=== PATIENT | female | born 1940 | race Caucasian/White ===

== ENCOUNTER 2018-07-06 13:12 | Outpatient (CLI) | payer MEDICARE, MEDICAID ==
[2018-07-06 13:10] VITALS: BP 129/61
[2018-07-06] MEDS ORDERED: COZAAR25 MG ORAL (20:37)
[2018-07-06] MEDS ORDERED: ALENDRONATE SOD10 MG ORAL (20:37)
[2018-07-06] MEDS ORDERED: VYTORIN 10-101 EACH ORAL (20:37)
[2018-07-06] MEDS ORDERED: NEURONTIN100 MG ORAL (20:37)
--- NOTE | 2018-07-06 20:41 | GI Initial Consult Note ---
History of Present Illness General Date patient seen: Jul 06, 2018 Time patient seen: 15:00 Referring physician: NONE Reason for Consultation: ROUTINE COLONOSCOPY Present Illness HPI 78 year old female patient presents today for routine colonoscopy. History of colonoscopy, small bowel capsule endoscopy back in 2011 without any source of anemia. Today, she states she has been having diarrhea and rectal pain with bleeding. In addition, the patient c/o of increased urgency to urinate. Home Meds Reported Medications Gabapentin* (NEURONTIN*) Unknown Strength Capsule, ORAL THREE TIMES A DAY, #15 CAP 0 Refills 07/06/18 Ezetimibe/Simvastatin 10-10MG (VYTORIN 10-10 MG TABLET) Unknown Strength Tablet , ORAL DAILY, TAB 07/06/18 Alendronate Sodium* (FOSAMAX*) 10 Mg Tablet, 10 MG ORAL DAILY, TAB 0 Refills Take with 6-8 oz water at least 30 minutes before first food; Sit upright for at least 30min after medication administration 07/06/18 Losartan Potassium* (COZAAR*) Unknown Strength Tablet, ORAL DAILY, TAB 07/06/18 Med list reviewed/reconciled: Yes Allergies: Coded Allergies: PENICILLINS (Verified Allergy, Unknown, 01/25/09) Patient History History Provided By: Patient, Medical Record PMH Narrative DM HTN Osteoporosis Anemia Past Surgical History: Hysterectomy Social History: Denies: smoking, alcohol use, drug use, other Review of Systems All Other Systems: negative except mentioned in HPI Physical Exam Vital Signs Date Time Temp Pulse Resp B/P (MAP) Pulse Ox O2 Delivery O2 Flow Rate FiO2 07/06/18 13:10 98.3 83 129/61 95 98.3 Sp02 EP Interpretation: reviewed, normal General Appearance: well appearing, no apparent distress, alert Head: normocephalic EENT: PERRL/EOMI, normal ENT inspection Neck: supple Respiratory: normal breath sounds, no respiratory distress Cardiovascular: normal rate Gastrointestinal: normal inspection, non tender, soft, normal bowel sounds, non -distended Rectal: deferred Genitourinary: no CVA tenderness Musculoskeletal: normal inspection, back normal Neurologic: normal inspection, alert, oriented x3, responsive Psychiatric: normal inspection, judgement/insight normal, memory normal Skin: normal inspection, normal color, no rash, warm/dry, palpation normal, well hydrated Lymphatic: normal inspection, no adenopathy GI: Plan Problems: (1) Colonoscopy planned (2) Rectal pain (3) Rectal bleed (4) Diarrhea (5) HTN (hypertension) (6) Diabetes mellitus (7) Anemia Plan Colonoscopy scheduled. - CLD & (Nulytely/Suprep/Movi-Prep) prep instructions given and acknowledged by patient. - NPO @ ID day prior procedure explained. Seen with Dr. Monteiro. Thank you for this patient referral. The patient was seen and examined at bedside and all new and available data was reviewed in the patients chart. I agree with the above findings, impression and plan. (Patient seen earlier today. Signature stamp does not reflect patient encounter time.). - MD Diane Palacios AnhNicholas MEDICAL IMAGING TECHNOLOGIST Jul 06, 2018 20:41
== END 2018-07-06 13:42 | disposition home or self-care (01) ==
LOC: PAN 13:12
DX: Z12.11 Encounter for screening for malignant neoplasm of colon (principal); K62.89 Other specified diseases of anus and rectum; K62.5 Hemorrhage of anus and rectum; R19.7 Diarrhea, unspecified; I10 Essential (primary) hypertension; E11.9 Type 2 diabetes mellitus without complications; D64.9 Anemia, unspecified; M81.0 Age-related osteoporosis without current pathological fracture; Z88.0 Allergy status to penicillin
CPT/HCPCS: 99201

== ENCOUNTER 2018-07-13 07:54 | Day surgery (SDC) | payer MEDICARE, OTHER ==
[2018-07-13] VITALS (9 sets, daily range): BP systolic 110–150; BP diastolic 56–70
[~2018-07-13] VITALS: Ht 134.6 cm; Wt 62.6 kg
--- NOTE | 2018-07-13 06:49 | Anethesia Preoperative Eval ---
Anesthesia Pre-op PMH/ROS General Date of Evaluation: Jul 13, 2018 Time of Evaluation: 06:46 Anesthesiologist: soraya ASA Score: ASA 4 Mallampati Score Class I : Soft palate, uvula, fauces, pillars visible Class II: Soft palate, uvula, fauces visible Class III: Soft palate, base of uvula visible Class IV: Only hard plate visible Mallampati Classification: Class II Surgeon: nestor Diagnosis: rectal bleed Surgical Procedure: colonoscopy Anesthesia History: none Social History: smoking - nonsmoker Family History: no anesthesia problems Allergies: Coded Allergies: PENICILLINS (Verified Allergy, Intermediate, 07/13/18) SKIN RASH Medications: see eMAR Patient NPO?: Yes Past Medical History Cardiovascular: Reports: HTN Gastrointestinal/Genitourinary: Reports: other - rectal pain, rectal bleed Hematology/Immune: Reports: anemia Anesthesia Pre-op Phys. Exam Physician Exam Last Vital Signs Date Time Temp Pulse Resp B/P (MAP) Pulse Ox O2 Delivery O2 Flow Rate FiO2 07/13/18 08:56 Room Air 07/13/18 08:50 96.6 64 20 146/56 99 Constitutional: NAD Neurologic: CN 2-12 intact Cardiovascular: RRR Respiratory: CTA Gastrointestinal: S/NT/ND Airway Exam Mallampati Score: Class II MO: limited Neck: flexible TMD: 2fb ROM: limited Anesthesia Pre-op A/P Studies Pre-op Studies: EKG - nsr rbbb, lpfb Risk Assessment & Plan Assessment: asa3 Plan: mac Status Change Before Surgery: No Pre-Antibiotics Drug: Liv Pelayo MD Jul 13, 2018 06:49
[~2018-07-13 07:54] MED LIST: ALENDRONATE SOD10 MG ORAL; Atropine Inj 1mg/10ml Syr IV PRN; COZAAR25 MG ORAL; DiphenhydrAMINE 50mg/ml Inj IVP PRN; Midazolam 2mg/2ml Inj IVP PRN; NEURONTIN100 MG ORAL; VYTORIN 10-101 EACH ORAL; fentaNYL 100 mcg/2 mL IV PRN
[2018-07-13] MEDS ORDERED: GLIMEPIRIDE4 MG ORAL (08:49)
[2018-07-13] MEDS ORDERED: BACLOFEN10 MG ORAL (08:49)
[2018-07-13] MEDS ORDERED: CRESTOR10 M1 ORAL (08:49)
--- NOTE | 2018-07-13 09:51 | Short Stay Surgery H&P ---
History of Present Illness History of Present Illness Chief Complaint see recent office note HPI Susan Dyer is a 78 year old female who was admitted on for Rectal Bleed Patient History Allergies: Coded Allergies: PENICILLINS (Verified Allergy, Intermediate, 07/13/18) SKIN RASH Medication History Scheduled Baclofen* (Baclofen*), 10 MG ORAL NEEDED, (Reported) Gabapentin* (Neurontin*), Unknown Dose ORAL THREE TIMES A DAY, (Reported) Glimepiride* (Glimepiride*), 4 MG ORAL BEFORE BREAKFAST, (Reported) Losartan Potassium* (Cozaar*), 25 MG ORAL DAILY, (Reported) Rosuvastatin Calcium (Crestor), 5 MG ORAL DAILY, (Reported) Discontinued Medications Alendronate Sodium* (Fosamax*), 10 MG ORAL DAILY, (Reported) Discontinued Reason: Pt stopped taking med Ezetimibe/Simvastatin 10-10MG (Vytorin 10-10 Mg Tablet), Unknown Dose ORAL DAILY , (Reported) Discontinued Reason: Pt stopped taking med Physical Exam Vital Signs Last Vital Signs Date Time Temp Pulse Resp B/P (MAP) Pulse Ox O2 Delivery O2 Flow Rate FiO2 07/13/18 08:56 Room Air 07/13/18 08:50 96.6 64 20 146/56 99 Plan Attestation Are the patient's medical conditions optimized for surgery? Renzo Monteiro MD Jul 13, 2018 09:51
--- NOTE | 2018-07-13 09:51 | Pre-Procedure Note/Attestation ---
Pre-Procedure Note/Attestation Complete Prior to Procedure Planned Procedure: not applicable Procedure Narrative: colonoscopy Indications for Procedure Pre-Operative Diagnosis: screening Attestation I attest that I discussed the nature of the procedure; its benefits; risks and complications; and alternatives (and the risks and benefits of such alternatives ), prior to the procedure, with the patient (or the patient's legal sales and service representative). I attest that, if there was a reasonable possibility of needing a blood transfusion, the patient (or the patient's legal sales and service representative) was given the [facility] standardized written summary, pursuant to the [place] Blood Safety Act ([place] Health and Safety Code # 1645, as amended). I attest that I re-evaluated the patient just prior to the surgery and that there has been no change in the patient's H&P, except as documented below: Renzo Monteiro MD Jul 13, 2018 09:51
[2018-07-13] MEDS ORDERED: Propofol 200mg/20ml IV ONE (09:52)
[2018-07-13] MEDS ORDERED: Lidocaine 1% MPF 10mg/ml 5ml ONE (09:52)
--- NOTE | 2018-07-13 10:26 | Endoscopy Procedure Note ---
Endoscopy Procedure Note General Indication for Procedure: screening colon, diarrhea Procedures Performed: colonoscopy Operative Findings/Diagnosis: diverticulosis Specimen: yes Pt Tolerated Procedure Well: Yes Estimated Blood Loss: none Anesthesia Anesthesiologist: karthik Anesthesia: MAC Inserted Devices Implant(s) used?: No Quality Quality of Bowel Preparation: Good Did scope reach the cecum?: Yes Was there any complications?: No GI Core Measures 50 yrs or older w/o bx or poly: No 10yrs. F/U not recommended: Yes If not recommended, why?: Above average risk 10 yrs. F/U needed: Yes 18 years or older w/prev. colo: No Renzo Monteiro MD Jul 13, 2018 10:26
[2018-07-13 10:54] LABS: EOSINOPHILS % (AUTO) 1.9 % (0.0-3.0); HEMATOCRIT 33.9 % (37.0-47.0); HEMOGLOBIN 11.1 G/DL (12.0-16.0); LYMPHOCYTES % (AUTO) 30.6 % (20.0-45.0); MEAN CORPUSCULAR VOLUME 92 FL (80-99); MONOCYTES % (AUTO) 8.6 % (1.0-10.0); NEUTROPHILS % (AUTO) 57.9 % (45.0-75.0); PLATELET COUNT 223 K/UL (150-450); RED BLOOD COUNT 3.67 M/UL (4.20-5.40); RED CELL DISTRIBUTION WIDTH 12.1 % (11.6-14.8); WHITE BLOOD COUNT 6.3 K/UL (4.8-10.8)
[2018-07-13 11:19] LABS: % IRON SATURATION 26 % (15-50); ALANINE AMINOTRANSFERASE 24 U/L (12-78); ALBUMIN 3.3 G/DL (3.4-5.0); ALBUMIN/GLOBULIN RATIO 0.9 (1.0-2.7); ALKALINE PHOSPHATASE 128 U/L (46-116); ANION GAP 7 mmol/L (5-15); ASPARTATE AMINO TRANSFERASE 24 U/L (15-37); BILIRUBIN,TOTAL 0.5 MG/DL (0.2-1.0); BLOOD UREA NITROGEN 22 mg/dL (7-18); CALCIUM 8.6 MG/DL (8.5-10.1); CARBON DIOXIDE 27 MMOL/L (21-32); CHLORIDE 109 MMOL/L (98-107); CREATININE 0.9 MG/DL (0.55-1.30); IRON 81 ug/dL (50-175); POTASSIUM 4.4 MMOL/L (3.5-5.1); SODIUM 143 MMOL/L (136-145); TOTAL IRON BINDING CAPACITY 311 ug/dL (250-450)
--- NOTE | 2018-07-13 12:53 | Immediate Post-Op Evaluation ---
Immediate Post-Op Evalulation Immediate Post-Op Evalulation Procedure: colonoscopy w/bx Date of Evaluation: Jul 13, 2018 Time of Evaluation: 10:37 IV Fluids: 350ml 0.9ns Blood Products: none Estimated Blood Loss: negligible Blood Pressure Systolic: 119 Blood Pressure Diastolic: 59 Pulse Rate: 63 Respiratory Rate: 18 O2 Sat by Pulse Oximetry: 100 Temperature (Fahrenheit): 98.5 Pain Score (1-10): 0 Nausea: No Vomiting: No Complications none Patient Status: awake, reacts, patent Hydration Status: adequate Drug: Liv Pelayo MD Jul 13, 2018 12:53
--- NOTE | 2018-07-13 12:55 | 48 Hour Post Anesthesia Eval ---
Post Anesthesia Evaluation Procedure: colonoscopy w/bx Date of Evaluation: Jul 13, 2018 Time of Evaluation: 10:39 Blood Pressure Systolic: 120 0: 65 Pulse Rate: 65 Respiratory Rate: 18 Temperature (Fahrenheit): 98.5 O2 Sat by Pulse Oximetry: 100 Airway: patent Nausea: No Vomiting: No Pain Intensity: 0 Hydration Status: adequate Cardiopulmonary Status: stable Mental Status/LOC: patient returned to baseline Post-Anesthesia Complications: none Follow-up care needed: N/A Liv Clifford MD Jul 13, 2018 12:55
--- NOTE | 2018-07-13 16:00 | Procedure Note ---
DATE OF PROCEDURE: 07/13/2018 SURGEON: Renzo Monteiro M.D. ANESTHESIOLOGIST: Dr. Flores. PROCEDURE: Colonoscopy with biopsy. ANESTHESIA: Per Dr. Flores. INSTRUMENT: Olympus adult flexible colonoscope. INDICATION: Screening colonoscopy evaluation, chronic diarrhea. The procedure, risks, benefits, and possible consequences, including hemorrhage, aspiration, perforation and infection, and alternative treatments, were explained to the patient/legal guardian by Dr. Renzo Monteiro and the patient/legal guardian understood and accepted these risks. DESCRIPTION OF PROCEDURE: After informed consent was obtained and the patient was adequately sedated, first rectal exam was performed, which was positive for internal hemorrhoids. Then, the scope was advanced from the rectum into the cecum documented by appendix orifice, ileocecal valve, and right upper quadrant palpation. Quality of prep was good. The patient had no polyps in this colonoscopy examination. Random biopsies from the right and left colon was obtained to rule out microscopic colitis given chronic diarrhea. There was some scattered diverticulosis in the left colon. On retroflexion, there was some small internal hemorrhoids. SUMMARY OF FINDINGS: 1. No polyp was seen. 2. Scattered diverticulosis in the left colon. 3. Internal hemorrhoids. RECOMMENDATIONS: Follow up biopsy results and treat accordingly. Renzo Monteiro M.D. DR: Fish JOB#: [id number] CC:
--- NOTE | 2018-07-14 15:01 | Cardiology Report ---
APPROVED REPORT EKG Measurement Heart [id number] OR [id number] Normal sinus rhythm Right bundle branch block Left posterior fascicular block Bifascicular block Abnormal ECG
== END 2018-07-13 12:00 | disposition home or self-care (01) ==
LOC: GAS 07:54
DX: Z12.11 Encounter for screening for malignant neoplasm of colon (principal); K64.8 Other hemorrhoids; K57.30 Diverticulosis of large intestine without perforation or abscess without bleeding; I10 Essential (primary) hypertension; D64.9 Anemia, unspecified; Z88.0 Allergy status to penicillin
CPT/HCPCS: 36415; 45380; 80053; 83540; 83550; 85025; 93005; J2704; 94003; 94150

== ENCOUNTER 2018-08-11 09:17 | Outpatient (CLI) | payer MEDICARE, OTHER ==
[~2018-08-11 09:17] MED LIST changes: -Atropine Inj 1mg/10ml Syr IV PRN; +BACLOFEN10 MG ORAL; +CRESTOR10 M1 ORAL; -DiphenhydrAMINE 50mg/ml Inj IVP PRN; +GLIMEPIRIDE4 MG ORAL; -Midazolam 2mg/2ml Inj IVP PRN; -fentaNYL 100 mcg/2 mL IV PRN
[2018-08-11 09:35] VITALS: BP 128/52
--- NOTE | 2018-08-11 10:23 | GI Progress Note ---
Assessment/Plan Problems: (1) Anemia ICD Codes: D64.9 - Anemia, unspecified SNOMED: 993756670 (2) Diabetes mellitus ICD Codes: E11.9 - Type 2 diabetes mellitus without complications SNOMED: 90404311 (3) Rectal bleed ICD Codes: K62.5 - Hemorrhage of anus and rectum SNOMED: 49779516 (4) Diarrhea ICD Codes: R19.7 - Diarrhea, unspecified SNOMED: 50621003 (5) Rectal pain ICD Codes: K62.89 - Other specified diseases of anus and rectum SNOMED: 77757191 Status: stable Status Narrative Discussed with Dr. Monteiro. Assessment/Plan SUMMARY OF FINDINGS reviewed with patient: 1. No polyp was seen. 2. Scattered diverticulosis in the left colon. 3. Internal hemorrhoids. RECOMMENDATIONS: Follow up biopsy results and treat accordingly. >> consistent with lymphocytic colitis Anusol HC RTC x3 months The patient was seen and examined at bedside and all new and available data was reviewed in the patients chart. I agree with the above findings, impression and plan. (Patient seen earlier today. Signature stamp does not reflect patient encounter time.). - Renzo Monteiro MD Subjective Subjective colonoscopy review diarrhea has improved still has rectal pain and bleed Objective Last 24 Hour Vital Signs Date Time Temp Pulse Resp B/P (MAP) Pulse Ox O2 Delivery O2 Flow Rate FiO2 08/11/18 09:35 97.9 86 20 128/52 96 General Appearance: WD/WN, no apparent distress, alert Cardiovascular: normal rate Respiratory/Chest: normal breath sounds, no respiratory distress Abdominal Exam: normal bowel sounds, non tender, soft Extremities: normal range of motion, non-tender Tarun Contreras PROBATE JUDGE Aug 11, 2018 10:23
== END 2018-08-11 09:47 | disposition home or self-care (01) ==
LOC: PAN 09:17
DX: D64.9 Anemia, unspecified (principal); E11.9 Type 2 diabetes mellitus without complications; K62.5 Hemorrhage of anus and rectum; R19.7 Diarrhea, unspecified; K62.89 Other specified diseases of anus and rectum
CPT/HCPCS: 99212